=== PATIENT | female | born 1985 ===

== ENCOUNTER 2020-04-09 17:20 | Inpatient (IN) | payer OTHER ==
[2020-04-09 17:41] VITALS: BMI 27.9
[2020-04-09 18:55] LABS: RETICULOCYTES 1.77 % (0.5-1.5)
[2020-04-09 18:56] LABS: BASO % 0.4 % (0-2.0); EOS % 0.7 % (0-4.5); HEMATOCRIT 34.8 % (32.4-45.2); HEMOGLOBIN 11.8 GM/dL (10.7-15.3); LYMPH % 18.6 % (8-40); MCH 30.9 pg (25.7-33.7); MCHC 33.8 g/dl (32.0-36.0); MEAN CELL VOLUME 91.5 fl (80-96); MEAN PLT VOLUME 9.6 fl (7.5-11.1); MONO % 7.8 % (3.8-10.2); NEUT % 72.5 % (42.8-82.8); PLATELET COUNT 194 K/MM3 (134-434); RDW 12.6 % (11.6-15.6); WHITE BLOOD COUNT 12.4 K/mm3 (4.0-10.0)
[2020-04-09 19:03] LABS: INR 0.98 (0.83-1.09); PROTHROMBIN TIME (PATIENT) 11.6 SEC (9.7-13.0)
[2020-04-09 19:06] LABS: ACTIVATED PTT 24.7 SECONDS (25.2-36.5)
[2020-04-09 19:24] LABS: BLOOD UREA NITROGEN 10.6 mg/dL (7-18); CALCIUM 9.1 mg/dL (8.5-10.1); CREATININE 0.9 mg/dL (0.55-1.3); GAMMA GLUTAMYL TRANSPEPTIDASE 9 U/L (5-85); POTASSIUM 3.9 mmol/L (3.5-5.1); SGOT/AST 23 U/L (15-37); SGPT/ALT 12 U/L (13-61); URIC ACID 6.3 mg/dL (2.6-7.2)
[2020-04-09] MEDS ORDERED: PROMETHAZINE HCL 25 MG/1 ML VIAL IVPUSH ONE (19:59)
[2020-04-09] MEDS ORDERED: BUTORPHANOL TARTRATE 1 MG/ML VIAL IVPB ONE (19:59)
--- NOTE | 2020-04-09 19:59 | HP ---
Past Medical History - Primary Care Physician PCP:: JUAN - Admission Chief Complaint: scheduled IOL due to GHTN History Source: Patient Limitations to Obtaining History: No Limitations - Past Medical History ...: 1 ...LMP: 07/20/19 ... Weeks Gestation by Dates: 37.5 ...EDC by Dates: 04/25/20 ...EDC by Sono: 04/28/20 - Past Surgical History Past Surgical History: Yes: None Hx Myomectomy: No Hx Transabdominal Cerclage: No - Smoking History Smoking history: Never smoked Have you smoked in the past 12 months: No - Alcohol/Substance Use Hx Alcohol Use: No Home Medications - Allergies Allergies/Adverse Reactions: Allergies Allergy/AdvReac Type Severity Reaction Status Date / Time No Known Allergies Allergy Verified 04/09/20 17:44 - Home Medications Home Medications: Ambulatory Orders Tablet 1 tablet PO DAILY 04/09/20 Review of Systems - Review of Systems Constitutional: reports: No Symptoms Cardiovascular: reports: No Symptoms Respiratory: reports: No Symptoms Gastrointestinal: reports: No Symptoms Genitourinary: reports: No Symptoms Breasts: reports: No Symptoms Reported Musculoskeletal: reports: No Symptoms Neurological: reports: No Symptoms Psychiatric: reports: No Symptoms Physical Exam - Maternity Constitutional: Yes: No Distress, Calm Cardiovascular: Yes: WNL, Regular Rate and Rhythm Lungs: Clear to auscultation - Abdominal Exam/OB Fundal Height: 38 Number of Fetuses: Single Presentation: Vertex Contractions: No Monitor Mode: External Category: I - Vaginal Exam/OB Vaginal Bleeding: No Dilatation (cm): 0 Effacement (%): 0 Presentation: Vertex/Position Station: -3 - Physical Exam Musculoskeletal: Yes: WNL Extremities: Yes: WNL Edema: No Deep Tendon Reflex Grade: Normal +2 ...Motor Strength: WNL Psychiatric: Yes: Alert, Oriented - Labs Lab Results: CBC, BMP 04/09/20 18:05 04/09/20 18:05 Assessment/Plan 34 y/o at 37w5d with GHTN scheduled for IOL GBS positive Admit to L&D [facility]H labs Cervidil placed EFM & toco Pain management GBS prophylaxis once in labor Reassess
[2020-04-09] MEDS ORDERED: AMPICILLIN - 2 GM in SODIUM CHLORIDE 100 ML IVPB ONE (20:04)
[2020-04-09] MEDS ORDERED: DINOPROSTONE 10 MG VAGINAL SUPPOSITORY VG ONE (20:04)
--- NOTE | 2020-04-10 09:56 | PN ---
Progress Note (short form) - Note Progress Note: 34 year old at 37+w undergoing IOL due to GHTN BP 130s/80s Denies any headache, blurry vision or epigastric pain Denies any complaints VE 2, posterior, soft, vertex, intact Cat 1 tracing Uterine irritability Second cervidil placed
[2020-04-10] MEDS ORDERED: DINOPROSTONE 10 MG VAGINAL SUPPOSITORY VG ONE (11:30)
[2020-04-10] MEDS: ELECTROLYTE-148 SOLN 1,000 ML IV SCH ×2 (17:52→20:00)
[2020-04-10] MEDS: AMPICILLIN - 1 GM in SODIUM CHLORIDE 100 ML IVPB SCH ×2 (17:52→17:53)
[2020-04-10] MEDS ORDERED: AMPICILLIN - 2 GM in SODIUM CHLORIDE 100 ML IVPB ONE ×3 (20:15→21:15)
[2020-04-10] MEDS ORDERED: AMPICILLIN SODIUM 2 GM VIAL ONE (20:18)
[2020-04-10] MEDS ORDERED: BUTORPHANOL TARTRATE 2 MG/ML VIAL ONE (22:28)
[2020-04-10] MEDS ORDERED: PROMETHAZINE HCL 25 MG/1 ML VIAL ONE (22:28)
--- NOTE | 2020-04-10 22:48 | PN ---
Progress Note (short form) - Note Progress Note: 37w6d undergoing IOL, GHTN GBS positive s/p cervidil x 2 Complains of contraction pain Desires pain management VSS VE 1-/-2 Cat 1 tracing Contractions q 2 minutes Second cervidil removed Will monitor contraction pattern If contractions space out, Pitocin Pain management
[2020-04-10] MEDS ORDERED: OXYTOCIN 30 UNITS in 0.9% NS 30 UNIT/500 ML INFUS.BAG IVPB SCH (23:00)
[2020-04-11] MEDS: AMPICILLIN - 1 GM in SODIUM CHLORIDE 100 ML IVPB SCH ×6 (00:30→18:22)
[2020-04-11] MEDS ORDERED: AMPICILLIN SODIUM 1 GM VIAL ONE ×3 (01:08→08:09)
[2020-04-11] MEDS ORDERED: OXYTOCIN 30 UNITS in 0.9% NS 30 UNIT/500 ML INFUS.BAG IVPB ONE (04:21)
[2020-04-11] MEDS ORDERED: FENTANYL/BUPIVACAINE/NS/PF - PCEA - 50 ML DISP.SYRIN EP ONE ×2 (08:09→11:28)
[2020-04-11] MEDS ORDERED: PCA PUMP NR ONE (08:14)
[2020-04-11] MEDS ORDERED: BUPIVACAINE HCL/PF 0.25% (2.5MG/ML) 10 ML VIAL ONE (08:23)
[2020-04-11] MEDS: ELECTROLYTE-148 SOLN 1,000 ML IV SCH (08:30)
--- NOTE | 2020-04-11 09:47 | PN ---
Progress Note (short form) - Note Progress Note: ATTENDING note: patient requested and received epidural, now comfortable; SROM baseline= 130/ moderate variability/ acc/ no dec/ contractions q 3 min cervix= 4 cm/ 90 %/ 0 station I/P: progressing well; continue CONSTANTIN/ Pitocin
[2020-04-11] MEDS ORDERED: NALOXONE HCL 0.4 MG/ML VIAL IVPUSH PRN (10:41)
[2020-04-11] MEDS ORDERED: FENTANYL/BUPIVACAINE/NS/PF - PCEA - 50 ML DISP.SYRIN EP SCH (10:45)
[2020-04-11] MEDS ORDERED: OXYTOCIN 20 UNITS in 0.9% NS 20 UNIT/1,000 ML INFUS.BAG IV ONE (12:02)
--- NOTE | 2020-04-11 13:29 | PN ---
Delivery - Delivery Vaginal Delivery: Vacuum Assist Type of Anesthesia: Local, Epidural Episiotomy/Laceration: 1st degree (maternal exhaustion with episodes of tachycardia to 200; adequate pelvis; efw= 8 lbs; vacuum applied x 2 with one pop off; placed at head at perineum with moderate force applied; live baby boy/ OA position; placenta spontaneously delivered and complete; cervix/ uterus explored and negative; laceration repaired with 2-0 chromic under local; EBL= 350cc) EBL (cc): 350 Delivery, Single - Feeding Plan Initial Plan: Exclusive throughout hospitalization
[2020-04-11] MEDS ORDERED: BENZOCAINE 28 GM HEMORRHOIDAL OINTMENT TP PRN (13:30)
[2020-04-11] MEDS ORDERED: OXYTOCIN 20 UNITS in 0.9% NS 20 UNIT/1,000 ML INFUS.BAG IV SCH (13:30)
[2020-04-11] MEDS ORDERED: BISACODYL 10 MG SUPP.RECT RC PRN (13:30)
[2020-04-11] MEDS ORDERED: BENZOCAINE 20% 57 GM BOTTLE TP PRN (13:30)
[2020-04-11] MEDS ORDERED: WITCH HAZEL 50% (TUCKS) 40 PAD/JAR PAD TP PRN (13:30)
[2020-04-11] MEDS ORDERED: METHYLERGONOVINE MALEATE 0.2 MG/1 ML AMP IM PRN (13:30)
[2020-04-11] MEDS: ACETAMINOPHEN 325 MG TABLET (FP) PO PRN ×2 (15:46→20:23)
[2020-04-11] MEDS: IBUPROFEN 600 MG TABLET (FP) PO PRN ×2 (15:46→20:24)
[2020-04-12] MEDS: ACETAMINOPHEN 325 MG TABLET (FP) PO PRN (08:53)
[2020-04-12] MEDS: IBUPROFEN 600 MG TABLET (FP) PO PRN (08:54)
[2020-04-12 09:08] LABS: BASO % 0.6 % (0-2.0); EOS % 0.4 % (0-4.5); HEMATOCRIT 30.4 % (32.4-45.2); HEMOGLOBIN 10.1 GM/dL (10.7-15.3); LYMPH % 12.3 % (8-40); MCH 30.8 pg (25.7-33.7); MCHC 33.1 g/dl (32.0-36.0); MEAN CELL VOLUME 92.9 fl (80-96); MEAN PLT VOLUME 9.3 fl (7.5-11.1); MONO % 5.5 % (3.8-10.2); NEUT % 81.2 % (42.8-82.8); PLATELET COUNT 194 K/MM3 (134-434); RBC 3.27 M/mm3 (3.60-5.2); RDW 12.6 % (11.6-15.6); WHITE BLOOD COUNT 21.2 K/mm3 (4.0-10.0)
[2020-04-12 10:49] LABS: PLATELET ESTIMATE ADEQUATE
--- NOTE | 2020-04-12 13:27 | PN ---
Post Progress Note Post Day: 1 Type of Delivery: Vacuum Assist Vag Del Vital Signs: Vital Signs Temperature 98.1 F 04/12/20 10:00 Pulse Rate 97 H 04/12/20 10:00 Respiratory Rate 18 04/12/20 10:00 Blood Pressure 128/60 04/12/20 10:00 O2 Sat by Pulse Oximetry (%) 98 04/11/20 14:18 Breast Exam: Yes: Soft Uterus: Yes: Fundus Firm, Fundus below umbilicus, Non-tender Abdomen/GI: Yes: Abdomen soft, Tolerating PO Lochia: Yes: Rubra Lochia, amount: Small Activity: Ambulating - Labs Labs: CBC WBC 21.2 K/mm3 (4.0-10.0) H 04/12/20 08:46 RBC 3.27 M/mm3 (3.60-5.2) L 04/12/20 08:46 Hgb 10.1 GM/dL (10.7-15.3) L 04/12/20 08:46 Hct 30.4 % (32.4-45.2) L 04/12/20 08:46 MCV 92.9 fl (80-96) 04/12/20 08:46 MCH 30.8 pg (25.7-33.7) 04/12/20 08:46 MCHC 33.1 g/dl (32.0-36.0) 04/12/20 08:46 RDW 12.6 % (11.6-15.6) 04/12/20 08:46 Plt Count 194 K/MM3 (134-434) 04/12/20 08:46 MPV 9.3 fl (7.5-11.1) 04/12/20 08:46 Absolute Neuts (auto) 17.3 K/mm3 (1.5-8.0) H 04/12/20 08:46 Total Counted 100 04/12/20 08:46 Neutrophils % 81.2 % (42.8-82.8) 04/12/20 08:46 Neutrophils % (Manual) 79.0 % (42.8-82.8) 04/12/20 08:46 Band Neutrophils % 4.0 % 04/12/20 08:46 Lymphocytes % 12.3 % (8-40) D 04/12/20 08:46 Lymphocytes % (Manual) 13.0 % (8-40) 04/12/20 08:46 Monocytes % 5.5 % (3.8-10.2) 04/12/20 08:46 Monocytes % (Manual) 4 % (3.8-10.2) 04/12/20 08:46 Eosinophils % 0.4 % (0-4.5) 04/12/20 08:46 Eosinophils % (Manual) 0.0 % (0-4.5) 04/12/20 08:46 Basophils % 0.6 % (0-2.0) 04/12/20 08:46 Basophils % (Manual) 0.0 % (0-2.0) 04/12/20 08:46 Nucleated RBC % 0 % (0-0) 04/12/20 08:46 Hypochromia 1+ 04/12/20 08:46 Platelet Estimate Adequate 04/12/20 08:46 Platelet Comment No clumping noted 04/12/20 08:46 Retic Count 1.77 % (0.5-1.5) H 04/09/20 18:05 Haptoglobin 121 mg/dL (33-278) 04/09/20 18:05 Assessment/Plan S/P Vacuum assisted vaginal delivery. pod # 1, with no complaints Continue management.
[2020-04-12] MEDS ORDERED: SENNOSIDES/DOCUSATE COMBO (SENNA PLUS) TABLET (UD) PO PRN (22:00)
[2020-04-13 10:06] VITALS: PULSE 88; TEMP 98
[2020-04-13 11:20] LABS: BASO % 0.9 % (0-2.0); EOS % 1.6 % (0-4.5); HEMATOCRIT 30.2 % (32.4-45.2); HEMOGLOBIN 10.2 GM/dL (10.7-15.3); LYMPH % 16.4 % (8-40); MCH 31.3 pg (25.7-33.7); MCHC 33.8 g/dl (32.0-36.0); MEAN CELL VOLUME 92.5 fl (80-96); MEAN PLT VOLUME 9.1 fl (7.5-11.1); MONO % 5.7 % (3.8-10.2); NEUT % 75.4 % (42.8-82.8); PLATELET COUNT 225 K/MM3 (134-434); RBC 3.27 M/mm3 (3.60-5.2); RDW 12.7 % (11.6-15.6); WHITE BLOOD COUNT 16.5 K/mm3 (4.0-10.0)
[2020-04-13 11:43] VITALS: BP 138/90
--- NOTE | 2020-04-13 13:21 | DS ---
Physical Exam-RAMP SERVICE AGENT Vital Signs: Vital Signs Temperature 98 F 04/13/20 10:00 Pulse Rate 88 04/13/20 10:00 Respiratory Rate 18 04/13/20 10:00 Blood Pressure 138/90 04/13/20 11:43 O2 Sat by Pulse Oximetry (%) 98 04/13/20 10:00 Labs: CBC, BMP 04/13/20 10:58 04/09/20 18:05 Delivery - Delivery Vaginal Delivery: Vacuum Assist Type of Anesthesia: Local, Epidural Episiotomy/Laceration: 1st degree (maternal exhaustion with episodes of tachycardia to 200; adequate pelvis; efw= 8 lbs; vacuum applied x 2 with one pop off; placed at head at perineum with moderate force applied; live baby boy/ OA position; placenta spontaneously delivered and complete; cervix/ uterus explored and negative; laceration repaired with 2-0 chromic under local; EBL= 350cc) EBL (cc): 350 Delivery, Single - Stages of Labor Date 1st Stage Initiatied: 04/10/20 Time 1st Stage Initiated: 22:30 Date 2nd Stage Initiated: 04/11/20 Time 2nd Stage Initiated: 12:00 Date of Delivery: 04/11/20 Time of Delivery: 12:55 Time Placenta Delivered: 13:00 - Condition of Duplicating Machine Mechanic/Primary Care Coordinator Present: No Gender: Male Weight: 3.657 kg Position: OA Total Hours ROM (Hrs/Mins): 5:25 - 1 Minute Total Score: 9 5 Minutes Total Score: 9 - [place] Feeding Plan Initial Plan: Exclusive throughout hospitalization Remarks - Remarks Remarks: pt. without complaints at this time. states saw "spots' briefly early this morning, but none now. denies QUINONES, epig. pain. c/o swelling in feet. vs: BPs mild elev 130-140 /80-90 range (similar to those earlier this admission) abd: soft, nt, nd. fundus firm ve: intact, min lochia ext: no calf tenderness b/l 2+edema b/l. a/p pt. admitted w gest htn for iol rpt cbc cmp today if ok, plan for d/c to home and f/u w provider next week preeclampsia precautions (return to ED if any). Discharge Summary Problems reviewed: Yes Reason For Visit: INDUCTION Procedures: Principal: vaccum assisted vaginal delivery Hospital Course: see remarks Condition: Good - Instructions Diet, Activity, Other Instructions: regular diet. activity as tolerated, but no strenuous activity, no heavy lifting, no intercourse. pericare. RTC 1 week. if persistent headache, visual disturbances or epigastric pain, return immediately for evaluation. Referrals: Trip Ivy MD [Staff Physician] - Leanne Magaña MD [Staff Physician] - Disposition: HOME - Home Medications Comprehensive Discharge Medication List: Ambulatory Orders Tablet 1 tablet PO DAILY 04/09/20 Ibuprofen [Motrin -] 600 mg PO Q6H PRN #40 tablet 04/13/20 Witch Saundra 50% (Tucks) [Tucks Pads -] 1 pad TP PRN PRN pad 04/13/20
[2020-04-13 14:26] LABS: ALBUMIN 2.5 g/dl (3.4-5.0); BILIRUBIN,TOTAL 0.2 mg/dL (0.2-1); BLOOD UREA NITROGEN 10.5 mg/dL (7-18); CALCIUM 8.6 mg/dL (8.5-10.1); CREATININE 0.8 mg/dL (0.55-1.3); POTASSIUM 3.7 mmol/L (3.5-5.1); TOT PROT 5.7 g/dl (6.4-8.2)
== END 2020-04-13 15:40 | disposition home or self-care (01) | DRG 807 ==
LOC: JLDR 17:20 → J3W 04-11 15:35
PROVIDERS: ADMIT Obstetrics & Gynecology; ATTEND Obstetrics & Gynecology
PROC: 3E0P7VZ Introduction of Hormone into Female Reproductive, Via Natural or Artificial Opening (ICD-10-PCS; principal; 2020-04-09)
PROC: 10D07Z6 Extraction of Products of Conception, Vacuum, Via Natural or Artificial Opening (ICD-10-PCS; 2020-04-11)
PROC: 0HQ9XZZ Repair Perineum Skin, External Approach (ICD-10-PCS; 2020-04-11)
DX: O13.3 Gestational [pregnancy-induced] hypertension without significant proteinuria, third trimester (principal); Z37.0 Single live birth; Z3A.37 37 weeks gestation of pregnancy; O70.0 First degree perineal laceration during delivery; O99.824 Streptococcus B carrier state complicating childbirth; O42.02 Full-term premature rupture of membranes, onset of labor within 24 hours of rupture; O75.81 Maternal exhaustion complicating labor and delivery; O76 Abnormality in fetal heart rate and rhythm complicating labor and delivery
CPT/HCPCS: 36415; 59409; 80048; 80053; 82977; 83010; 84450; 84460; 84550; 85025; 85032; 85045; 85610; 85730; 86780; 86850; 86900; 86901